=== PATIENT | male | born 1955 | race Caucasian/White ===

== ENCOUNTER 2025-02-15 13:46 | Emergency (ER) | payer MEDICARE, SELFPAY ==
[2025-02-15 14:08] VITALS: BP 160/92; PULSE 76; TEMP 36.7; O2SAT 98; BMI 26.8
--- NOTE | 2025-02-15 14:18 | XR_ITS ---
[place] [id number] Patient Name: SINDI ANDRADE MRN: [id number] date: 1955 Sex: M Assigned Patient Location: ED.MAIN Current Patient Location: ED.MAIN Accession/Order Number: [id number] Exam Date: 02/15/2025 15:30 Report Date: 02/15/2025 15:55 At the request of: RANDELL HUNG MD Procedure: XR ankle LT min 3V 3 views left ankle plain film COMPARISON: None HISTORY: Acute left ankle pain ACUTE FINDINGS: None DEGENERATIVE CHANGE: Posterior and inferior calcaneal spurring. Mild degeneration SOFT TISSUE FINDINGS: Unremarkable JOINT EFFUSION: None POSTOP CHANGES: None BONE MINERALIZATION: Adequate XR/XR ankle LT min 3V IMPRESSION: Mild degeneration. Calcaneal spurring Impression dictated by: Rosendo Alvarez M.D. 02/15/2025 3:55 PM Dictation Location: [place] [address] Electronically authenticated by: [id number] Y Date: 02/15/2025 15:55
[2025-02-15] MEDS: KETOROLAC TROMETHAMINE 30 MG/ML VIAL IM (14:36)
--- NOTE | 2025-02-15 16:24 | ED.LOWEXI1 ---
HPI HPI - Extremity Injury (Lower) General Chief Complaint: Extremity Injury, Lower Stated Complaint: L ANKLE PAIN Time Seen by Provider: 02/15/25 14:05 Source: patient Mode of arrival: walk-in History of Present Illness HPI Narrative: The patient mentioned that he has been having for the last few days left posterior ankle pain that comes on when movement, patient mentioned that the pain is more with putting weight on the left ankle but without that he does not have any pain He had that before that resolved by itself but right now it is more consistent No fall or trauma there is no injuries detected Related Data Home Medications ?Medication ?Instructions ?Recorded ?Confirmed aspirin 81 mg tablet 81 mg PO .every other day 02/15/25 02/15/25 atorvastatin 20 mg tablet 20 mg PO DAILY 02/15/25 02/15/25 lisinopril 10 1 tab PO DAILY 02/15/25 02/15/25 mg-hydrochlorothiazide 12.5 mg tablet paroxetine HCl 20 mg tablet 20 mg PO DAILY 02/15/25 02/15/25 paroxetine HCl 20 mg tablet (Paxil) 10 mg PO DAILY 02/15/25 02/15/25 Previous Rx's ?Medication ?Instructions ?Recorded diclofenac sodium 50 mg 50 mg PO Q12H PRN pain #14 tabs 02/15/25 tablet,delayed release Allergies Allergy/AdvReac Type Severity Reaction Status Date / Time oxycodone (From OxyContin) Allergy Hallucinati Verified 02/15/25 14:06 ng Opioid HPI Opioid Management Most Recent Pain and Opioid Data: Last Pain Scale 8 Today, 14:39 Last AUG Pain Assessment Today, 14:36 Review of Systems ROS Status of ROS 10 or more systems reviewed and unremarkable except as noted in history and below PFSH PFSH Social History Little interest or pleasure in doing things: not at all Feeling down, depressed, or hopeless: several days Exam Narrative Exam Narrative: Nurses notes and vital signs reviewed and patient is not hypoxic. Left lower extremity exam: The patient have tenderness upon palpation of the insertion site of the Achilles tendon the tendon itself is not tender and the patient have no other place of tenderness on examination of the left lower extremity and no decreased range of movement General: Well-appearing and in no apparent distress. Skin: Warm, dry, no pallor noted. Neurological: A&O x4. No cranial nerve dysfunction observed. No truncal ataxia. Moves all extremities. Sensation intact. Psychiatric: Cooperative and interactive. Normal mood and affect. Constitutional Vital Signs, click to edit/add: Last Vital Signs Temp 98.1 F 02/15/25 14:08 Pulse 76 02/15/25 14:08 Resp 16 02/15/25 14:08 BP 160/92 H 02/15/25 14:08 Pulse Ox 98 02/15/25 14:08 O2 Del Method Room Air 02/15/25 14:08 Course Vital Signs Vital signs: Vital Signs Temperature 98.1 F 02/15/25 14:08 Pulse Rate 76 02/15/25 14:08 Respiratory Rate 16 02/15/25 14:08 Blood Pressure 160/92 H 02/15/25 14:08 Pulse Oximetry 98 02/15/25 14:08 Oxygen Delivery Method Room Air 02/15/25 14:08 Temperature 98.1 F 02/15/25 14:08 Pulse Rate 76 02/15/25 14:08 Respiratory Rate 16 02/15/25 14:08 Blood Pressure 160/92 H 02/15/25 14:08 Pulse Oximetry 98 02/15/25 14:08 Oxygen Delivery Method Room Air 02/15/25 14:08 MDM - Extremity Injury (Lower) MDM Narrative Medical decision making narrative: X-ray of the patient ankle showed no acute pathology he does have a calcaneal spur His presentation with no could be secondary to Achilles tendinitis and right now the patient was given Toradol in the ER feeling much better after that also provided with a walking boot and referred to podiatry as outpatient Patient meanwhile will also take Voltaren twice daily for pain The patient is to follow up with primary care physician in next 2-3 days or to return to the emergency department should any of the signs or symptoms worsen or new symptoms develop. The patient agrees with the following Diagnosis and Treatment plan and the patient will be discharged home. Discharge Plan Discharge Chief Complaint: Extremity Injury, Lower Clinical Impression: Achilles tendinitis Patient Disposition: Home, Self-Care Time of Disposition Decision: 16:25 Condition: Good Prescriptions / Home Meds: New diclofenac sodium 50 mg tablet,delayed release (DR/EC) 50 mg PO Q12H PRN (Reason: pain) Qty: 14 0RF No Action atorvastatin 20 mg tablet 20 mg PO DAILY paroxetine HCl 20 mg tablet 20 mg PO DAILY lisinopril-hydrochlorothiazide 10-12.5 mg tablet 1 tab PO DAILY aspirin 81 mg tablet 81 mg PO .every other day paroxetine HCl [Paxil] 20 mg tablet 10 mg PO DAILY Print Language: Malay Instructions: Achilles Tendinitis (ED) Referrals: Physician,Non-Staff, MD [Primary Care Provider] - 1 week Stephen Chery DPM [Physician, Podiatry] - 1 week
== END 2025-02-15 16:41 | disposition home or self-care (01) ==
PROVIDERS: Emergency Provider Emergency Medicine
DX: M76.62 Achilles tendinitis, left leg (principal)
CPT/HCPCS: 73610; 96372; 99284; J1885